=== PATIENT | female | born 1965 | race Caucasian/White ===

== ENCOUNTER → 2017-02-03 | Outpatient (CLI) | payer BC ==
--- NOTE | 2017-02-03 17:50 | DIAGNOSTIC IMAGING REPORT ---
CERVICAL WITHOUT CONTRAST CLINICAL HISTORY: 51 years-old Female presenting with CERVICAL RADICULOPATHY, neck pain and numbness in the neck and right shoulder, right hand tingling and numbness for 2 years, no trauma. TECHNIQUE: Multisequence, multiplanar MR imaging of the cervical spine was performed without the use of intravenous contrast. IV contrast: None. COMPARISON: None. FINDINGS: Localizer images: Unremarkable. Straightening of normal cervical lordosis likely secondary to degenerative changes. Vertebral bodies maintain normal height, alignment, and bone marrow signal intensity. Mild diffuse intervertebral disc desiccation with disc osteophyte complexes noted at several levels. Degenerative changes further detailed below: C2-3: No significant neural foraminal or spinal canal narrowing. C3-4: No significant neural foraminal or spinal canal narrowing. C4-5: Disc osteophyte complex asymmetrically effaces the paracentral anterior thecal sac and anterior right lateral recess mildly contouring the right anterior aspect of the spinal cord. No significant neural foraminal narrowing. C5-6: Minimal disc osteophyte complex without evidence of neural foraminal or spinal canal narrowing. C6-7: Uncovertebral hypertrophy and disc osteophyte complex with mild bilateral neural foraminal narrowing, left greater than right. Mild effacement of the ventral thecal sac. C7-T1: Minimal disc osteophyte complex without significant neural foraminal or spinal canal narrowing. Cervical spinal cord normal in signal intensity, including at the C4-5 level. Craniocervical junction normal. Paraspinal soft tissues within normal limits without evidence of edema. No epidural collection. IMPRESSION: 1. Multilevel degenerative changes most severe at C4-5 where a disc osteophyte complex asymmetrically effaces the right anterior aspect of the thecal sac mildly contouring the spinal cord. No abnormal spinal cord signal intensity to suggest edema or myelomalacia. Additional degenerative changes as above. Electronically signed by: Yoandy Mc M.D. 02/03/2017 5:49 PM Dictated Date/Time: 02/03/2017 5:44 PM
== END | disposition home or self-care (01) ==
LOC: C.MRIBC 15:48
PROVIDERS: ATTEND Pain Medicine Interventional Pain Medicine
DX: M47.22 Other spondylosis with radiculopathy, cervical region (principal)